=== PATIENT | male | born 1970 | race Caucasian/White ===

== ENCOUNTER 2017-02-04 18:37 | Emergency (ER) | payer OTHER ==
[~2017-02-04] VITALS: Ht 167.6 cm; Wt 58.4 kg
[2017-02-04 21:22] VITALS: BP 131/85
[2017-02-04] MEDS ORDERED: MOTRIN800 MG PO (22:28)
[2017-02-04] MEDS ORDERED: KEFLEX500 MG PO (22:28)
[2017-02-04] MEDS ORDERED: NORCO 10/3251 TABLET PO (22:28)
== END 2017-02-04 22:42 | disposition home or self-care (01) ==
LOC: EME 18:37
PROC: 0HN Skin and Breast, Release (ICD-10-PCS; principal; 2017-02-04)
DX: N47.2 Paraphimosis (principal); B37.49 Other urogenital candidiasis; F17.200 Nicotine dependence, unspecified, uncomplicated
CPT/HCPCS: 81003; 87254; 99281; 99285; J1885; J2405; J2765; J2930; J3010